=== PATIENT | male | born 1985 | race African-American/Black ===

== ENCOUNTER 2018-06-19 18:27 | Emergency (ER) | payer MEDICAID | END 2018-06-19 19:33 | disposition home or self-care (01) | LOC: FTE 18:27 | DX: Z76.0 Encounter for issue of repeat prescription (principal) | CPT/HCPCS: 99281; Z7502 ==

== ENCOUNTER 2018-07-17 01:27 | Emergency (ER) | payer MEDICAID | END 2018-07-17 02:05 | disposition home or self-care (01) | LOC: FTE 01:27 | DX: Z76.0 Encounter for issue of repeat prescription (principal) | CPT/HCPCS: 99281; Z7502 ==

== ENCOUNTER 2018-08-17 06:09 | Observation (INO) | payer SELFPAY, MEDICAID ==
[2018-08-17 06:39] LABS: ADD MAN DIFF? NO
[2018-08-17 06:42] LABS: WHITE BLOOD COUNT 6.5 10^3/ul (4.8-10.8)
[2018-08-17 06:42] LABS: ABNORMAL IP MESSAGE 1; BASOPHILS % 0.3 % (0.0-2.0); HEMATOCRIT 43.2 % (42.0-52.0); HEMOGLOBIN 14.6 g/dl (14.0-18.0); LYMPHOCYTES # 0.4 10^3/ul (0.8-2.9); LYMPHOCYTES % 6.4 % (15.0-51.0); MEAN CORPUSCULAR HEMOGLOBIN 28.1 pg (29.0-33.0); MEAN CORPUSCULAR HGB CONC 33.8 g/dl (32.0-37.0); MEAN CORPUSCULAR VOLUME 83.1 fl (82.0-101.0); MEAN PLATELET VOLUME 9.3 fl (7.4-10.4); MONOCYTE # 0.7 10^3/ul (0.3-0.9); MONOCYTES % 10.4 % (0.0-11.0); NEUTROPHIL # 5.4 10^3/ul (1.6-7.5); NEUTROPHILS % 82.7 % (39.0-77.0); PLATELET COUNT 202 10^3/UL (140-415); POSITIVE DIFF @See below; RED CELL DISTRIBUTION WIDTH 11.4 % (11.5-14.5)
[2018-08-17 06:55] LABS: ADD UMIC YES; UR ASCORBIC ACID NEGATIVE (NEGATIVE); UR BACTERIA FEW /HPF (NONE SEEN); UR BILIRUBIN (Dip) NEGATIVE (NEGATIVE); UR BLOOD (Dip) NEGATIVE (NEGATIVE); UR CLARITY SLIGHTLY CLOUDY (CLEAR); UR COLOR YELLOW (YELLOW); UR GLUCOSE (Dip) NEGATIVE (NEGATIVE); UR KETONES (Dip) NEGATIVE (NEGATIVE); UR LEUKOCYTE ESTERASE (Dip) NEGATIVE Leu/ul (NEGATIVE); UR MUCUS FEW /HPF (NONE SEEN); UR NITRITE (Dip) NEGATIVE (NEGATIVE); UR RBC 0 /HPF (0-5); UR SPECIFIC GRAVITY (Dip) 1.019 (1.003-1.030); UR TOTAL PROTEIN (Dip) 1+ mg/dl (NEGATIVE); UR UROBILINOGEN (Dip) NEGATIVE (NEGATIVE); UR WBC 1 /HPF (0-5)
[2018-08-17] MEDS: LEVETIRACETAM 1000 MG (PMX) 100 ML IVPB (06:57)
[2018-08-17] MEDS: SOD CHLORIDE 0.9% 1,000 ML IV ×3 (06:58→23:48)
[2018-08-17 07:00] LABS: INR 1.03; PROTIME 13.6 Sec (11.9-14.9); PT RATIO 1.1
[2018-08-17 07:03] LABS: ALANINE AMINOTRANSFERASE 28 IU/L (13-69); ALBUMIN 4.4 g/dl (3.3-4.9); ALBUMIN/GLOBULIN RATIO 1.46; ALKALINE PHOSPHATASE 104 IU/L (42-121); ANION GAP 11 (5-13); ASPARTATE AMINO TRANSFERASE 28 IU/L (15-46); BILIRUBIN,INDIRECT 0.9 mg/dl (0-1.1); BILIRUBIN,TOTAL 0.9 mg/dl (0.2-1.3); BLOOD UREA NITROGEN 10 mg/dl (7-20); CALCIUM 9.9 mg/dl (8.4-10.2); CARBON DIOXIDE 24 mmol/L (21-31); CHLORIDE 104 mmol/L (97-110); Estimated GFR > 60 mL/min (>60); GLUCOSE 104 mg/dl (70-220); SODIUM 139 mmol/L (135-144); TOTAL PROTEIN 7.4 g/dl (6.1-8.1)
[2018-08-17 07:04] LABS: ETHANOL < 10.0 mg/dl (0-0)
[2018-08-17 07:27] LABS: AMPHETAMINE/METHAMPHETAMINE Negative (NEGATIVE); BARBITURATES Negative (NEGATIVE); BENZODIAZEPINES Negative (NEGATIVE); COCAINE Negative (NEGATIVE); OPIATES Negative (NEGATIVE)
[2018-08-17 07:33] LABS: CANNABINOIDS Positive (NEGATIVE)
[2018-08-17] MEDS ORDERED: ACETAMINOPHEN 325 MG TAB PO ×2 (08:00→10:00)
[2018-08-17] MEDS ORDERED: ONDANSETRON 4 MG INJ IV ×2 (08:00→10:00)
[2018-08-17] MEDS ORDERED: NACL 0.9% 3 ML SYG IV (10:00)
[2018-08-17] MEDS: OXCARBAZEPINE 300 MG TAB PO ×2 (15:02→22:15)
[2018-08-17] MEDS: LORAZEPAM 4 MG/ML VIAL IV ×2 (15:07→18:03)
[2018-08-17] MEDS ORDERED: LEVETIRACETAM 1000 MG (PMX) 100 ML IVPB (21:00)
[2018-08-17] MEDS: LEVETIRACETAM 750 MG TAB PO (21:21)
[2018-08-18 06:19] LABS: ADD MAN DIFF? NO
[2018-08-18 06:28] LABS: BASOPHILS % 0.7 % (0.0-2.0); EOSINOPHILS # 0.1 10^3/ul (0.0-0.5); EOSINOPHILS % 1.5 % (0.0-7.0); HEMOGLOBIN 12.3 g/dl (14.0-18.0); LYMPHOCYTES # 0.9 10^3/ul (0.8-2.9); LYMPHOCYTES % 23.3 % (15.0-51.0); MEAN CORPUSCULAR HEMOGLOBIN 28.5 pg (29.0-33.0); MEAN CORPUSCULAR HGB CONC 34.2 g/dl (32.0-37.0); MEAN CORPUSCULAR VOLUME 83.5 fl (82.0-101.0); MEAN PLATELET VOLUME 9.1 fl (7.4-10.4); MONOCYTE # 0.8 10^3/ul (0.3-0.9); MONOCYTES % 18.6 % (0.0-11.0); NEUTROPHIL # 2.2 10^3/ul (1.6-7.5); NEUTROPHILS % 55.7 % (39.0-77.0); PLATELET COUNT 180 10^3/UL (140-415); RED BLOOD COUNT 4.31 10^6/ul (4.70-6.10); RED CELL DISTRIBUTION WIDTH 11.4 % (11.5-14.5)
[2018-08-18 07:01] LABS: ALANINE AMINOTRANSFERASE 29 IU/L (13-69); ALBUMIN 3.5 g/dl (3.3-4.9); ALBUMIN/GLOBULIN RATIO 1.45; ALKALINE PHOSPHATASE 74 IU/L (42-121); ANION GAP 9 (5-13); ASPARTATE AMINO TRANSFERASE 17 IU/L (15-46); BILIRUBIN,INDIRECT 0.8 mg/dl (0-1.1); BILIRUBIN,TOTAL 0.8 mg/dl (0.2-1.3); BLOOD UREA NITROGEN 10 mg/dl (7-20); CALCIUM 8.9 mg/dl (8.4-10.2); CARBON DIOXIDE 26 mmol/L (21-31); CHLORIDE 106 mmol/L (97-110); CREATININE 0.81 mg/dl (0.61-1.24); Estimated GFR > 60 mL/min (>60); GLUCOSE 110 mg/dl (70-220); PHOSPHORUS 3.4 mg/dl (2.5-4.9); SODIUM 141 mmol/L (135-144); TOTAL PROTEIN 5.9 g/dl (6.1-8.1)
[2018-08-18] MEDS: SOD CHLORIDE 0.9% 1,000 ML IV (08:42)
[2018-08-18] MEDS: OXCARBAZEPINE 300 MG TAB PO ×2 (08:42→20:42)
[2018-08-18] MEDS: LEVETIRACETAM 750 MG TAB PO ×2 (08:42→20:42)
[2018-08-18] MEDS: LORAZEPAM 4 MG/ML VIAL IV (18:44)
[2018-08-19] MEDS: SOD CHLORIDE 0.9% 1,000 ML IV ×2 (01:45→09:04)
[2018-08-19] MEDS: LEVETIRACETAM 750 MG TAB PO ×2 (09:04→20:14)
[2018-08-19] MEDS: OXCARBAZEPINE 300 MG TAB PO ×2 (09:04→20:14)
== END 2018-08-19 21:50 | disposition home or self-care (01) ==
LOC: E/R 06:09 → TEL 07:53
PROVIDERS: Internal Medicine
DX: G40.909 Epilepsy, unspecified, not intractable, without status epilepticus (principal); J06.9 Acute upper respiratory infection, unspecified
CPT/HCPCS: 36415; 70450; 70551; 71045; 80053; 80307; 81001; 82962; 83735; 84100; 84443; 85025; 85610; 87400; 96365; 99285-25; G0378

== ENCOUNTER 2018-12-31 04:27 | Inpatient (IN) | payer MEDICAID ==
[2018-12-31] MEDS: LEVETIRACETAM 1000 MG (PMX) 100 ML IVPB (04:48)
[2018-12-31] MEDS: LORAZEPAM 2 MG INJ IV ×4 (04:50→11:48)
[2018-12-31] MEDS ORDERED: BISACODYL (EC) 5 MG TAB PO (05:30)
[2018-12-31] MEDS ORDERED: DOCUSATE SODIUM 100 MG CAP PO (05:30)
[2018-12-31] MEDS: LEVETIRACETAM 500 MG (PMX) 100 ML IVPB (05:31)
[2018-12-31 05:33] LABS: ADD MAN DIFF? NO
[2018-12-31 05:40] LABS: WHITE BLOOD COUNT 5.1 10^3/ul (4.8-10.8)
[2018-12-31 05:40] LABS: BASOPHILS % 0.6 % (0.0-2.0); EOSINOPHILS % 0.4 % (0.0-7.0); HEMATOCRIT 42.7 % (42.0-52.0); LYMPHOCYTES # 1.3 10^3/ul (0.8-2.9); LYMPHOCYTES % 25.9 % (15.0-51.0); MEAN CORPUSCULAR HEMOGLOBIN 27.8 pg (29.0-33.0); MEAN CORPUSCULAR HGB CONC 32.8 g/dl (32.0-37.0); MEAN CORPUSCULAR VOLUME 84.7 fl (82.0-101.0); MONOCYTE # 0.4 10^3/ul (0.3-0.9); MONOCYTES % 8.6 % (0.0-11.0); NEUTROPHIL # 3.3 10^3/ul (1.6-7.5); NEUTROPHILS % 64.3 % (39.0-77.0); PLATELET COUNT 176 10^3/UL (140-415); RED BLOOD COUNT 5.04 10^6/ul (4.70-6.10); RED CELL DISTRIBUTION WIDTH 11.8 % (11.5-14.5)
[2018-12-31 05:53] LABS: HEMOGLOBIN A1C 4.6 % (0-5.9)
[2018-12-31] MEDS: SOD CHLORIDE 0.9% 1,000 ML IV ×2 (05:54→17:58)
[2018-12-31 05:57] LABS: ETHANOL < 10.0 mg/dl (0-0)
[2018-12-31] MEDS ORDERED: PANTOPRAZOLE 40 MG INJ IV (06:00)
[2018-12-31 06:13] LABS: ALANINE AMINOTRANSFERASE 25 IU/L (13-69); ALBUMIN 4.1 g/dl (3.3-4.9); ALBUMIN/GLOBULIN RATIO 1.64; ALKALINE PHOSPHATASE 75 IU/L (42-121); ANION GAP 8 (5-13); ASPARTATE AMINO TRANSFERASE 18 IU/L (15-46); BILIRUBIN,INDIRECT 0.9 mg/dl (0-1.1); BILIRUBIN,TOTAL 0.9 mg/dl (0.2-1.3); BLOOD UREA NITROGEN 9 mg/dl (7-20); CALCIUM 9.2 mg/dl (8.4-10.2); CARBON DIOXIDE 26 mmol/L (21-31); CHLORIDE 108 mmol/L (97-110); CREATININE 0.89 mg/dl (0.61-1.24); Estimated GFR > 60 mL/min (>60); GLUCOSE 84 mg/dl (70-220); POTASSIUM 4.1 mmol/L (3.5-5.1); SODIUM 142 mmol/L (135-144); TOTAL PROTEIN 6.6 g/dl (6.1-8.1)
[2018-12-31] MEDS: PANTOPRAZOLE (EC) 40 MG TAB PO (07:00)
[2018-12-31] MEDS: OXCARBAZEPINE 300 MG TAB PO ×2 (07:00→21:00)
[2018-12-31] MEDS ORDERED: OXCARBAZEPINE 300 MG TAB PO (09:00)
[2018-12-31 09:05] LABS: CARBAMAZEPINE (TEGRETOL) < 0.0 ug/ml (8.0-12.0)
[2018-12-31] MEDS: PHENYTOIN 1,000 MG in SOD CHLORIDE 0.9% 100 ML IV (11:33)
[2018-12-31 12:12] LABS: ADD UMIC NO; UR ASCORBIC ACID NEGATIVE (NEGATIVE); UR BILIRUBIN (Dip) NEGATIVE (NEGATIVE); UR BLOOD (Dip) NEGATIVE (NEGATIVE); UR CLARITY CLEAR (CLEAR); UR COLOR YELLOW (YELLOW); UR GLUCOSE (Dip) NEGATIVE (NEGATIVE); UR KETONES (Dip) 1+ mg/dL (NEGATIVE); UR LEUKOCYTE ESTERASE (Dip) NEGATIVE Leu/ul (NEGATIVE); UR NITRITE (Dip) NEGATIVE (NEGATIVE); UR SPECIFIC GRAVITY (Dip) 1.017 (1.003-1.030); UR TOTAL PROTEIN (Dip) NEGATIVE (NEGATIVE); UR UROBILINOGEN (Dip) NEGATIVE (NEGATIVE)
[2018-12-31 12:33] LABS: AMPHETAMINE/METHAMPHETAMINE Negative (NEGATIVE); BARBITURATES Negative (NEGATIVE); BENZODIAZEPINES Negative (NEGATIVE); CANNABINOIDS Negative (NEGATIVE); COCAINE Negative (NEGATIVE); OPIATES Negative (NEGATIVE)
[2018-12-31 13:59] LABS: PHENYTOIN (DILANTIN) 20.5 ug/ml (10.0-20.0)
[2018-12-31] MEDS: PHENYTOIN 100 MG INJ IV ×2 (14:15→21:06)
[2018-12-31] MEDS: LEVETIRACETAM 1500 MG (PMX) 100 ML IVPB ×2 (17:15→21:06)
[2019-01-01 05:27] LABS: ADD MAN DIFF? NO
[2019-01-01 05:41] LABS: WHITE BLOOD COUNT 6.8 10^3/ul (4.8-10.8)
[2019-01-01 05:41] LABS: BASOPHILS % 0.3 % (0.0-2.0); EOSINOPHILS # 0.1 10^3/ul (0.0-0.5); EOSINOPHILS % 0.7 % (0.0-7.0); HEMATOCRIT 44.5 % (42.0-52.0); HEMOGLOBIN 14.5 g/dl (14.0-18.0); LYMPHOCYTES # 1.7 10^3/ul (0.8-2.9); LYMPHOCYTES % 24.4 % (15.0-51.0); MEAN CORPUSCULAR HEMOGLOBIN 27.8 pg (29.0-33.0); MEAN CORPUSCULAR HGB CONC 32.6 g/dl (32.0-37.0); MEAN CORPUSCULAR VOLUME 85.4 fl (82.0-101.0); MEAN PLATELET VOLUME 9.4 fl (7.4-10.4); MONOCYTE # 0.6 10^3/ul (0.3-0.9); MONOCYTES % 8.1 % (0.0-11.0); NEUTROPHIL # 4.5 10^3/ul (1.6-7.5); NEUTROPHILS % 66.4 % (39.0-77.0); PLATELET COUNT 183 10^3/UL (140-415); RED BLOOD COUNT 5.21 10^6/ul (4.70-6.10); RED CELL DISTRIBUTION WIDTH 11.7 % (11.5-14.5)
[2019-01-01 05:53] LABS: ALANINE AMINOTRANSFERASE 17 IU/L (13-69); ALBUMIN 4.5 g/dl (3.3-4.9); ALKALINE PHOSPHATASE 110 IU/L (42-121); ANION GAP 12 (5-13); ASPARTATE AMINO TRANSFERASE 19 IU/L (15-46); BILIRUBIN,INDIRECT 0.9 mg/dl (0-1.1); BILIRUBIN,TOTAL 0.9 mg/dl (0.2-1.3); BLOOD UREA NITROGEN 4 mg/dl (7-20); CALCIUM 9.1 mg/dl (8.4-10.2); CARBON DIOXIDE 24 mmol/L (21-31); CHLORIDE 107 mmol/L (97-110); CREATININE 0.81 mg/dl (0.61-1.24); Estimated GFR > 60 mL/min (>60); GLUCOSE 101 mg/dl (70-220); POTASSIUM 3.8 mmol/L (3.5-5.1); SODIUM 143 mmol/L (135-144); TOTAL PROTEIN 7.7 g/dl (6.1-8.1)
[2019-01-01] MEDS: PANTOPRAZOLE (EC) 40 MG TAB PO (06:00)
[2019-01-01] MEDS: PHENYTOIN 100 MG INJ IV ×3 (06:19→21:40)
[2019-01-01] MEDS: LORAZEPAM 2 MG INJ IV ×3 (09:17→19:51)
[2019-01-01] MEDS: LEVETIRACETAM 1500 MG (PMX) 100 ML IVPB ×2 (09:46→20:32)
[2019-01-01] MEDS: SOD CHLORIDE 0.9% 1,000 ML IV ×2 (09:46→21:49)
[2019-01-01] MEDS: OXCARBAZEPINE 300 MG TAB PO ×2 (09:46→20:33)
[2019-01-01 10:10] LABS: PHENYTOIN (DILANTIN) 19.7 ug/ml (10.0-20.0)
[2019-01-02] MEDS: LORAZEPAM 2 MG INJ IV (02:30)
[2019-01-02] MEDS: PANTOPRAZOLE (EC) 40 MG TAB PO (05:21)
[2019-01-02] MEDS: PHENYTOIN 100 MG INJ IV ×3 (05:24→22:09)
[2019-01-02 05:58] LABS: ADD MAN DIFF? NO
[2019-01-02 06:06] LABS: BASOPHILS % 0.4 % (0.0-2.0); EOSINOPHILS # 0.1 10^3/ul (0.0-0.5); EOSINOPHILS % 0.9 % (0.0-7.0); HEMATOCRIT 41.3 % (42.0-52.0); HEMOGLOBIN 13.6 g/dl (14.0-18.0); LYMPHOCYTES # 1.3 10^3/ul (0.8-2.9); LYMPHOCYTES % 23.7 % (15.0-51.0); MEAN CORPUSCULAR HEMOGLOBIN 27.9 pg (29.0-33.0); MEAN CORPUSCULAR HGB CONC 32.9 g/dl (32.0-37.0); MEAN CORPUSCULAR VOLUME 84.6 fl (82.0-101.0); MEAN PLATELET VOLUME 9.4 fl (7.4-10.4); MONOCYTE # 0.5 10^3/ul (0.3-0.9); MONOCYTES % 10.2 % (0.0-11.0); NEUTROPHIL # 3.4 10^3/ul (1.6-7.5); NEUTROPHILS % 64.4 % (39.0-77.0); PLATELET COUNT 174 10^3/UL (140-415); RED BLOOD COUNT 4.88 10^6/ul (4.70-6.10); RED CELL DISTRIBUTION WIDTH 11.6 % (11.5-14.5)
[2019-01-02 06:06] LABS: WHITE BLOOD COUNT 5.3 10^3/ul (4.8-10.8)
[2019-01-02 06:27] LABS: PHENYTOIN (DILANTIN) 19.5 ug/ml (10.0-20.0)
[2019-01-02 06:43] LABS: ALANINE AMINOTRANSFERASE 20 IU/L (13-69); ALBUMIN 3.6 g/dl (3.3-4.9); ALKALINE PHOSPHATASE 102 IU/L (42-121); ANION GAP 9 (5-13); ASPARTATE AMINO TRANSFERASE 12 IU/L (15-46); BILIRUBIN,INDIRECT 0.8 mg/dl (0-1.1); BILIRUBIN,TOTAL 0.8 mg/dl (0.2-1.3); BLOOD UREA NITROGEN 7 mg/dl (7-20); CALCIUM 8.8 mg/dl (8.4-10.2); CARBON DIOXIDE 22 mmol/L (21-31); CHLORIDE 109 mmol/L (97-110); CREATININE 0.73 mg/dl (0.61-1.24); Estimated GFR > 60 mL/min (>60); GLUCOSE 83 mg/dl (70-220); POTASSIUM 3.8 mmol/L (3.5-5.1); SODIUM 140 mmol/L (135-144); TOTAL PROTEIN 6.6 g/dl (6.1-8.1)
[2019-01-02] MEDS: OXCARBAZEPINE 300 MG TAB PO ×2 (08:44→21:09)
[2019-01-02] MEDS: LEVETIRACETAM 1500 MG (PMX) 100 ML IVPB ×2 (08:44→21:10)
[2019-01-02] MEDS: DEXTROSE 5%-0.45% NACL 1,000 ML IV (15:09)
[2019-01-03] MEDS: DEXTROSE 5%-0.45% NACL 1,000 ML IV (04:28)
[2019-01-03 05:24] LABS: ADD MAN DIFF? NO
[2019-01-03] MEDS: PHENYTOIN 100 MG INJ IV ×3 (05:26→20:38)
[2019-01-03] MEDS: PANTOPRAZOLE (EC) 40 MG TAB PO (05:26)
[2019-01-03 05:28] LABS: BASOPHILS % 0.5 % (0.0-2.0); EOSINOPHILS # 0.1 10^3/ul (0.0-0.5); EOSINOPHILS % 1.6 % (0.0-7.0); HEMATOCRIT 40.7 % (42.0-52.0); HEMOGLOBIN 13.6 g/dl (14.0-18.0); LYMPHOCYTES # 1.2 10^3/ul (0.8-2.9); LYMPHOCYTES % 26.6 % (15.0-51.0); MEAN CORPUSCULAR HEMOGLOBIN 27.6 pg (29.0-33.0); MEAN CORPUSCULAR HGB CONC 33.4 g/dl (32.0-37.0); MEAN CORPUSCULAR VOLUME 82.7 fl (82.0-101.0); MEAN PLATELET VOLUME 9.3 fl (7.4-10.4); MONOCYTE # 0.4 10^3/ul (0.3-0.9); MONOCYTES % 9.9 % (0.0-11.0); NEUTROPHIL # 2.7 10^3/ul (1.6-7.5); NEUTROPHILS % 61.2 % (39.0-77.0); PLATELET COUNT 195 10^3/UL (140-415); RED BLOOD COUNT 4.92 10^6/ul (4.70-6.10); RED CELL DISTRIBUTION WIDTH 11.3 % (11.5-14.5)
[2019-01-03 05:28] LABS: WHITE BLOOD COUNT 4.4 10^3/ul (4.8-10.8)
[2019-01-03 06:08] LABS: PHENYTOIN (DILANTIN) 19.7 ug/ml (10.0-20.0)
[2019-01-03 06:08] LABS: ALANINE AMINOTRANSFERASE 16 IU/L (13-69); ALBUMIN 3.6 g/dl (3.3-4.9); ALBUMIN/GLOBULIN RATIO 1.33; ALKALINE PHOSPHATASE 93 IU/L (42-121); ANION GAP 7 (5-13); ASPARTATE AMINO TRANSFERASE 13 IU/L (15-46); BILIRUBIN,INDIRECT 0.7 mg/dl (0-1.1); BILIRUBIN,TOTAL 0.7 mg/dl (0.2-1.3); BLOOD UREA NITROGEN 6 mg/dl (7-20); CALCIUM 8.7 mg/dl (8.4-10.2); CARBON DIOXIDE 27 mmol/L (21-31); CHLORIDE 105 mmol/L (97-110); CREATININE 0.77 mg/dl (0.61-1.24); Estimated GFR > 60 mL/min (>60); GLUCOSE 113 mg/dl (70-220); POTASSIUM 3.5 mmol/L (3.5-5.1); SODIUM 139 mmol/L (135-144); TOTAL PROTEIN 6.3 g/dl (6.1-8.1)
[2019-01-03] MEDS: LEVETIRACETAM 1500 MG (PMX) 100 ML IVPB ×2 (08:46→20:38)
[2019-01-03] MEDS: OXCARBAZEPINE 300 MG TAB PO ×2 (08:46→20:38)
[2019-01-03 13:27] LABS: PROLACTIN 16.8 ng/mL (2.0-18.0)
[2019-01-03 16:37] LABS: LEVETIRACETAM 63.7 mcg/mL
[2019-01-04] MEDS: PHENYTOIN 100 MG INJ IV ×3 (05:26→20:20)
[2019-01-04] MEDS: PANTOPRAZOLE (EC) 40 MG TAB PO (05:26)
[2019-01-04 06:11] LABS: ADD MAN DIFF? NO
[2019-01-04 06:16] LABS: WHITE BLOOD COUNT 4.4 10^3/ul (4.8-10.8)
[2019-01-04 06:16] LABS: BASOPHILS % 0.7 % (0.0-2.0); EOSINOPHILS # 0.1 10^3/ul (0.0-0.5); EOSINOPHILS % 2.5 % (0.0-7.0); HEMATOCRIT 40.8 % (42.0-52.0); HEMOGLOBIN 13.5 g/dl (14.0-18.0); LYMPHOCYTES # 1.2 10^3/ul (0.8-2.9); LYMPHOCYTES % 28.2 % (15.0-51.0); MEAN CORPUSCULAR HEMOGLOBIN 27.7 pg (29.0-33.0); MEAN CORPUSCULAR HGB CONC 33.1 g/dl (32.0-37.0); MEAN CORPUSCULAR VOLUME 83.6 fl (82.0-101.0); MEAN PLATELET VOLUME 9.3 fl (7.4-10.4); MONOCYTE # 0.4 10^3/ul (0.3-0.9); NEUTROPHIL # 2.6 10^3/ul (1.6-7.5); NEUTROPHILS % 58.6 % (39.0-77.0); PLATELET COUNT 202 10^3/UL (140-415); RED BLOOD COUNT 4.88 10^6/ul (4.70-6.10); RED CELL DISTRIBUTION WIDTH 11.2 % (11.5-14.5)
[2019-01-04 07:02] LABS: PHENYTOIN (DILANTIN) 19.8 ug/ml (10.0-20.0)
[2019-01-04 07:02] LABS: ALANINE AMINOTRANSFERASE 20 IU/L (13-69); ALBUMIN 3.9 g/dl (3.3-4.9); ALBUMIN/GLOBULIN RATIO 1.39; ALKALINE PHOSPHATASE 98 IU/L (42-121); ANION GAP 8 (5-13); ASPARTATE AMINO TRANSFERASE 18 IU/L (15-46); BILIRUBIN,INDIRECT 0.5 mg/dl (0-1.1); BILIRUBIN,TOTAL 0.5 mg/dl (0.2-1.3); BLOOD UREA NITROGEN 7 mg/dl (7-20); CALCIUM 9.4 mg/dl (8.4-10.2); CARBON DIOXIDE 27 mmol/L (21-31); CHLORIDE 104 mmol/L (97-110); CREATININE 0.77 mg/dl (0.61-1.24); Estimated GFR > 60 mL/min (>60); GLUCOSE 106 mg/dl (70-220); POTASSIUM 3.4 mmol/L (3.5-5.1); SODIUM 139 mmol/L (135-144); TOTAL PROTEIN 6.7 g/dl (6.1-8.1)
[2019-01-04] MEDS: OXCARBAZEPINE 300 MG TAB PO ×2 (08:51→20:19)
[2019-01-04] MEDS: LEVETIRACETAM 1500 MG (PMX) 100 ML IVPB ×2 (08:52→20:20)
[2019-01-05 06:08] LABS: ADD MAN DIFF? NO
[2019-01-05 06:10] LABS: EOSINOPHILS # 0.1 10^3/ul (0.0-0.5); EOSINOPHILS % 2.5 % (0.0-7.0); HEMOGLOBIN 14.3 g/dl (14.0-18.0); LYMPHOCYTES # 1.4 10^3/ul (0.8-2.9); LYMPHOCYTES % 34.8 % (15.0-51.0); MEAN CORPUSCULAR HEMOGLOBIN 27.5 pg (29.0-33.0); MEAN CORPUSCULAR HGB CONC 33.3 g/dl (32.0-37.0); MEAN CORPUSCULAR VOLUME 82.7 fl (82.0-101.0); MEAN PLATELET VOLUME 9.3 fl (7.4-10.4); MONOCYTE # 0.5 10^3/ul (0.3-0.9); MONOCYTES % 12.4 % (0.0-11.0); NEUTROPHILS % 48.8 % (39.0-77.0); PLATELET COUNT 215 10^3/UL (140-415); RED CELL DISTRIBUTION WIDTH 11.4 % (11.5-14.5)
[2019-01-05] MEDS: PANTOPRAZOLE (EC) 40 MG TAB PO (06:12)
[2019-01-05] MEDS: PHENYTOIN 100 MG INJ IV ×2 (06:12→20:57)
[2019-01-05 06:31] LABS: ANION GAP 8 (5-13); BLOOD UREA NITROGEN 8 mg/dl (7-20); CALCIUM 9.3 mg/dl (8.4-10.2); CARBON DIOXIDE 29 mmol/L (21-31); CHLORIDE 102 mmol/L (97-110); CREATININE 0.71 mg/dl (0.61-1.24); Estimated GFR > 60 mL/min (>60); GLUCOSE 101 mg/dl (70-220); MAGNESIUM 1.9 mg/dl (1.7-2.5); PHOSPHORUS 4.2 mg/dl (2.5-4.9); POTASSIUM 3.7 mmol/L (3.5-5.1); SODIUM 139 mmol/L (135-144)
[2019-01-05 06:39] LABS: PHENYTOIN (DILANTIN) 23.7 ug/ml (10.0-20.0)
[2019-01-05] MEDS: OXCARBAZEPINE 300 MG TAB PO ×2 (08:28→20:58)
[2019-01-05] MEDS: LEVETIRACETAM 1500 MG (PMX) 100 ML IVPB ×2 (08:29→20:58)
[2019-01-05 16:11] LABS: PHENYTOIN (DILANTIN) 13.9 ug/ml (10.0-20.0)
[2019-01-06 05:37] LABS: ADD MAN DIFF? NO
[2019-01-06 05:46] LABS: BASOPHIL # 0.1 10^3/ul (0.0-0.1); BASOPHILS % 1.1 % (0.0-2.0); EOSINOPHILS # 0.1 10^3/ul (0.0-0.5); EOSINOPHILS % 2.1 % (0.0-7.0); HEMATOCRIT 42.5 % (42.0-52.0); HEMOGLOBIN 14.1 g/dl (14.0-18.0); LYMPHOCYTES # 1.7 10^3/ul (0.8-2.9); LYMPHOCYTES % 37.6 % (15.0-51.0); MEAN CORPUSCULAR HEMOGLOBIN 27.8 pg (29.0-33.0); MEAN CORPUSCULAR HGB CONC 33.2 g/dl (32.0-37.0); MEAN CORPUSCULAR VOLUME 83.8 fl (82.0-101.0); MEAN PLATELET VOLUME 9.1 fl (7.4-10.4); MONOCYTE # 0.5 10^3/ul (0.3-0.9); MONOCYTES % 10.9 % (0.0-11.0); NEUTROPHIL # 2.1 10^3/ul (1.6-7.5); NEUTROPHILS % 48.1 % (39.0-77.0); PLATELET COUNT 227 10^3/UL (140-415); RED BLOOD COUNT 5.07 10^6/ul (4.70-6.10); RED CELL DISTRIBUTION WIDTH 11.2 % (11.5-14.5)
[2019-01-06 05:46] LABS: WHITE BLOOD COUNT 4.4 10^3/ul (4.8-10.8)
[2019-01-06] MEDS: PANTOPRAZOLE (EC) 40 MG TAB PO (05:52)
[2019-01-06 06:09] LABS: PHENYTOIN (DILANTIN) 19.8 ug/ml (10.0-20.0)
[2019-01-06 06:09] LABS: ANION GAP 7 (5-13); BLOOD UREA NITROGEN 9 mg/dl (7-20); CALCIUM 9.4 mg/dl (8.4-10.2); CARBON DIOXIDE 29 mmol/L (21-31); CHLORIDE 102 mmol/L (97-110); CREATININE 0.78 mg/dl (0.61-1.24); Estimated GFR > 60 mL/min (>60); GLUCOSE 94 mg/dl (70-220); MAGNESIUM 1.9 mg/dl (1.7-2.5); POTASSIUM 4.4 mmol/L (3.5-5.1); SODIUM 138 mmol/L (135-144)
[2019-01-06] MEDS: LEVETIRACETAM 1500 MG (PMX) 100 ML IVPB ×2 (08:55→20:34)
[2019-01-06] MEDS: PHENYTOIN 100 MG INJ IV ×2 (08:55→20:30)
[2019-01-06] MEDS: OXCARBAZEPINE 300 MG TAB PO ×2 (08:55→20:30)
[2019-01-06 16:05] LABS: PHENYTOIN (DILANTIN) 19.7 ug/ml (10.0-20.0)
[2019-01-06] MEDS: LORAZEPAM 2 MG INJ IV (23:46)
[2019-01-07 05:33] LABS: ADD MAN DIFF? NO
[2019-01-07 05:42] LABS: BASOPHILS % 0.9 % (0.0-2.0); EOSINOPHILS # 0.1 10^3/ul (0.0-0.5); EOSINOPHILS % 2.6 % (0.0-7.0); HEMATOCRIT 45.5 % (42.0-52.0); LYMPHOCYTES # 1.9 10^3/ul (0.8-2.9); LYMPHOCYTES % 42.2 % (15.0-51.0); MEAN CORPUSCULAR HEMOGLOBIN 27.7 pg (29.0-33.0); MEAN CORPUSCULAR VOLUME 83.9 fl (82.0-101.0); MONOCYTE # 0.6 10^3/ul (0.3-0.9); MONOCYTES % 12.1 % (0.0-11.0); NEUTROPHIL # 1.9 10^3/ul (1.6-7.5); PLATELET COUNT 217 10^3/UL (140-415); RED BLOOD COUNT 5.42 10^6/ul (4.70-6.10); RED CELL DISTRIBUTION WIDTH 11.4 % (11.5-14.5)
[2019-01-07 05:42] LABS: WHITE BLOOD COUNT 4.6 10^3/ul (4.8-10.8)
[2019-01-07] MEDS: PANTOPRAZOLE (EC) 40 MG TAB PO (06:19)
[2019-01-07 06:41] LABS: ANION GAP 9 (5-13); BLOOD UREA NITROGEN 18 mg/dl (7-20); CALCIUM 9.2 mg/dl (8.4-10.2); CARBON DIOXIDE 26 mmol/L (21-31); CHLORIDE 103 mmol/L (97-110); CREATININE 0.85 mg/dl (0.61-1.24); Estimated GFR > 60 mL/min (>60); GLUCOSE 94 mg/dl (70-220); MAGNESIUM 2.1 mg/dl (1.7-2.5); PHOSPHORUS 4.7 mg/dl (2.5-4.9); POTASSIUM 4.5 mmol/L (3.5-5.1); SODIUM 138 mmol/L (135-144)
[2019-01-07] MEDS: PHENYTOIN 100 MG INJ IV (07:54)
[2019-01-07] MEDS: LEVETIRACETAM 1500 MG (PMX) 100 ML IVPB ×2 (07:54→21:44)
[2019-01-07] MEDS: OXCARBAZEPINE 300 MG TAB PO ×2 (07:54→20:10)
[2019-01-07] MEDS: LORAZEPAM 2 MG INJ IV ×2 (11:37→16:26)
[2019-01-07] MEDS: VALPROATE INJ 1,000 MG in SOD CHLORIDE 0.9% 100 ML IVPB (13:54)
[2019-01-07 16:57] LABS: VALPROATE 78 ug/ml (50-100)
[2019-01-07 17:54] LABS: ADD UMIC NO; UR ASCORBIC ACID NEGATIVE (NEGATIVE); UR BILIRUBIN (Dip) NEGATIVE (NEGATIVE); UR BLOOD (Dip) NEGATIVE (NEGATIVE); UR CLARITY CLEAR (CLEAR); UR COLOR YELLOW (YELLOW); UR GLUCOSE (Dip) NEGATIVE (NEGATIVE); UR KETONES (Dip) NEGATIVE (NEGATIVE); UR LEUKOCYTE ESTERASE (Dip) NEGATIVE Leu/ul (NEGATIVE); UR NITRITE (Dip) NEGATIVE (NEGATIVE); UR TOTAL PROTEIN (Dip) NEGATIVE (NEGATIVE); UR UROBILINOGEN (Dip) NEGATIVE (NEGATIVE)
[2019-01-07] MEDS: VALPROATE INJ 500 MG in SOD CHLORIDE 0.9% 50 ML IVPB (20:10)
[2019-01-08] MEDS: PANTOPRAZOLE (EC) 40 MG TAB PO (05:57)
[2019-01-08 06:06] LABS: VALPROATE 36 ug/ml (50-100)
[2019-01-08] MEDS: OXCARBAZEPINE 300 MG TAB PO ×2 (07:56→22:14)
[2019-01-08] MEDS: LEVETIRACETAM 1500 MG (PMX) 100 ML IVPB ×2 (07:57→20:17)
[2019-01-08] MEDS: LORAZEPAM 2 MG INJ IV ×6 (07:57→22:26)
[2019-01-08] MEDS: VALPROATE INJ 500 MG in SOD CHLORIDE 0.9% 50 ML IVPB ×5 (08:30→20:11)
[2019-01-08 15:23] LABS: VALPROATE 45 ug/ml (50-100)
[2019-01-08 19:17] LABS: VALPROATE 78 ug/ml (50-100)
[2019-01-09] MEDS: LORAZEPAM 2 MG INJ IV ×2 (02:38→05:51)
[2019-01-09] MEDS: PANTOPRAZOLE (EC) 40 MG TAB PO (05:54)
[2019-01-09 06:57] LABS: VALPROATE 58 ug/ml (50-100)
[2019-01-09] MEDS: LEVETIRACETAM 1500 MG (PMX) 100 ML IVPB ×2 (08:30→20:32)
[2019-01-09] MEDS: OXCARBAZEPINE 300 MG TAB PO ×2 (08:30→21:00)
[2019-01-09] MEDS: VALPROATE INJ 500 MG in SOD CHLORIDE 0.9% 50 ML IVPB (10:52)
[2019-01-09] MEDS: PHENOBARBITAL 65 MG INJ IV ×4 (12:56→20:32)
[2019-01-09] MEDS: DEXTROSE 5%-0.45% NACL 1,000 ML IV (20:32)
[2019-01-10 00:53] LABS: Allen Test ACCEPTAB; Arterial Base Excess -0.1 mmol/L (-3.0-3); Arterial Blood Gas Oxygen Sat 97.1 mmHG (95.0-98.0); Arterial COHb 0.5 % (0.0-3.0); Arterial Fraction of Oxyhgb 96.3 % (93.0-99.0); Arterial HCO3 25.3 mmol/L (22.0-26.0); Arterial MetHb 0.3 % (0.0-1.5); Arterial pCO2 44.1 mmhg (35-45); MODE ROOMK AIR; Site Right Radial
[2019-01-10 05:37] LABS: ADD MAN DIFF? NO
[2019-01-10] MEDS: PANTOPRAZOLE (EC) 40 MG TAB PO (05:37)
[2019-01-10 06:21] LABS: PHOSPHORUS 4.1 mg/dl (2.5-4.9)
[2019-01-10 06:24] LABS: ANION GAP 7 (5-13); BLOOD UREA NITROGEN 14 mg/dl (7-20); CALCIUM 9.1 mg/dl (8.4-10.2); CARBON DIOXIDE 27 mmol/L (21-31); CHLORIDE 104 mmol/L (97-110); CREATININE 0.71 mg/dl (0.61-1.24); Estimated GFR > 60 mL/min (>60); GLUCOSE 100 mg/dl (70-220); POTASSIUM 5.2 mmol/L (3.5-5.1); SODIUM 138 mmol/L (135-144)
[2019-01-10 07:21] LABS: WHITE BLOOD COUNT 5.6 10^3/ul (4.8-10.8)
[2019-01-10 07:21] LABS: BASOPHIL # 0.1 10^3/ul (0.0-0.1); BASOPHILS % 0.9 % (0.0-2.0); EOSINOPHILS # 0.1 10^3/ul (0.0-0.5); EOSINOPHILS % 0.9 % (0.0-7.0); HEMATOCRIT 44.7 % (42.0-52.0); HEMOGLOBIN 14.9 g/dl (14.0-18.0); LYMPHOCYTES # 1.4 10^3/ul (0.8-2.9); LYMPHOCYTES % 25.8 % (15.0-51.0); MEAN CORPUSCULAR HEMOGLOBIN 27.9 pg (29.0-33.0); MEAN CORPUSCULAR HGB CONC 33.3 g/dl (32.0-37.0); MEAN CORPUSCULAR VOLUME 83.6 fl (82.0-101.0); MEAN PLATELET VOLUME 8.8 fl (7.4-10.4); MONOCYTE # 0.7 10^3/ul (0.3-0.9); MONOCYTES % 13.3 % (0.0-11.0); NEUTROPHIL # 3.3 10^3/ul (1.6-7.5); NEUTROPHILS % 58.7 % (39.0-77.0); PLATELET COUNT 231 10^3/UL (140-415); RED BLOOD COUNT 5.35 10^6/ul (4.70-6.10); RED CELL DISTRIBUTION WIDTH 11.3 % (11.5-14.5)
[2019-01-10] MEDS: PHENOBARBITAL 65 MG INJ IV (08:33)
[2019-01-10] MEDS: LEVETIRACETAM 1500 MG (PMX) 100 ML IVPB ×2 (08:33→21:47)
[2019-01-10] MEDS: OXCARBAZEPINE 300 MG TAB PO ×2 (08:34→21:00)
[2019-01-10] MEDS: DEXTROSE 5%-0.45% NACL 1,000 ML IV (09:30)
[2019-01-11] MEDS: PHENOBARBITAL 65 MG INJ IV ×3 (00:21→21:01)
[2019-01-11] MEDS: DEXTROSE 5%-0.45% NACL 1,000 ML IV ×2 (00:35→15:21)
[2019-01-11] MEDS: PANTOPRAZOLE (EC) 40 MG TAB PO (05:11)
[2019-01-11] MEDS: LORAZEPAM 2 MG INJ IV (05:11)
[2019-01-11 05:30] LABS: ADD MAN DIFF? NO
[2019-01-11 05:35] LABS: BASOPHILS % 0.5 % (0.0-2.0); EOSINOPHILS % 0.4 % (0.0-7.0); HEMATOCRIT 43.2 % (42.0-52.0); HEMOGLOBIN 14.3 g/dl (14.0-18.0); LYMPHOCYTES # 1.3 10^3/ul (0.8-2.9); LYMPHOCYTES % 23.1 % (15.0-51.0); MEAN CORPUSCULAR HEMOGLOBIN 27.7 pg (29.0-33.0); MEAN CORPUSCULAR HGB CONC 33.1 g/dl (32.0-37.0); MEAN CORPUSCULAR VOLUME 83.7 fl (82.0-101.0); MEAN PLATELET VOLUME 9.1 fl (7.4-10.4); MONOCYTE # 0.6 10^3/ul (0.3-0.9); MONOCYTES % 11.4 % (0.0-11.0); NEUTROPHIL # 3.6 10^3/ul (1.6-7.5); NEUTROPHILS % 64.2 % (39.0-77.0); PLATELET COUNT 231 10^3/UL (140-415); RED BLOOD COUNT 5.16 10^6/ul (4.70-6.10); RED CELL DISTRIBUTION WIDTH 11.4 % (11.5-14.5)
[2019-01-11 05:35] LABS: WHITE BLOOD COUNT 5.5 10^3/ul (4.8-10.8)
[2019-01-11 06:05] LABS: PHOSPHORUS 3.9 mg/dl (2.5-4.9)
[2019-01-11 06:10] LABS: ANION GAP 4 (5-13); BLOOD UREA NITROGEN 9 mg/dl (7-20); CARBON DIOXIDE 29 mmol/L (21-31); CHLORIDE 106 mmol/L (97-110); CREATININE 0.71 mg/dl (0.61-1.24); Estimated GFR > 60 mL/min (>60); GLUCOSE 107 mg/dl (70-220); POTASSIUM 4.5 mmol/L (3.5-5.1); SODIUM 139 mmol/L (135-144)
[2019-01-11] MEDS: OXCARBAZEPINE 300 MG TAB PO ×2 (09:06→21:01)
[2019-01-11] MEDS: LEVETIRACETAM 1500 MG (PMX) 100 ML IVPB ×2 (09:06→21:01)
[2019-01-12] MEDS: LORAZEPAM 2 MG INJ IV ×2 (02:51→03:37)
[2019-01-12 04:12] LABS: PHENOBARBITAL 26.1 mg/L (15.0-40.0)
[2019-01-12] MEDS: DEXTROSE 5%-0.45% NACL 1,000 ML IV (04:45)
[2019-01-12 05:19] LABS: ADD MAN DIFF? NO
[2019-01-12 05:23] LABS: WHITE BLOOD COUNT 10.4 10^3/ul (4.8-10.8)
[2019-01-12 05:23] LABS: BASOPHILS % 0.3 % (0.0-2.0); EOSINOPHILS % 0.1 % (0.0-7.0); HEMOGLOBIN 13.4 g/dl (14.0-18.0); LYMPHOCYTES # 0.7 10^3/ul (0.8-2.9); LYMPHOCYTES % 6.9 % (15.0-51.0); MEAN CORPUSCULAR HEMOGLOBIN 27.3 pg (29.0-33.0); MEAN CORPUSCULAR HGB CONC 32.7 g/dl (32.0-37.0); MEAN CORPUSCULAR VOLUME 83.7 fl (82.0-101.0); MEAN PLATELET VOLUME 8.9 fl (7.4-10.4); MONOCYTE # 0.8 10^3/ul (0.3-0.9); MONOCYTES % 7.8 % (0.0-11.0); NEUTROPHIL # 8.8 10^3/ul (1.6-7.5); NEUTROPHILS % 84.5 % (39.0-77.0); PLATELET COUNT 244 10^3/UL (140-415); RED CELL DISTRIBUTION WIDTH 11.4 % (11.5-14.5)
[2019-01-12] MEDS: PANTOPRAZOLE (EC) 40 MG TAB PO (05:33)
[2019-01-12 05:51] LABS: ANION GAP 7 (5-13); BLOOD UREA NITROGEN 7 mg/dl (7-20); CALCIUM 9.1 mg/dl (8.4-10.2); CARBON DIOXIDE 29 mmol/L (21-31); CHLORIDE 103 mmol/L (97-110); CREATININE 0.69 mg/dl (0.61-1.24); Estimated GFR > 60 mL/min (>60); GLUCOSE 127 mg/dl (70-220); POTASSIUM 3.9 mmol/L (3.5-5.1); SODIUM 139 mmol/L (135-144)
[2019-01-12 06:08] LABS: PHOSPHORUS 3.2 mg/dl (2.5-4.9)
[2019-01-12 06:08] LABS: MAGNESIUM 1.8 mg/dl (1.7-2.5)
[2019-01-12] MEDS ORDERED: PHENYTOIN 1,000 MG in SOD CHLORIDE 0.9% 100 ML IV (07:00)
[2019-01-12 07:55] LABS: PHENYTOIN (DILANTIN) < 3.0 ug/ml (10.0-20.0)
[2019-01-12] MEDS: PHENYTOIN 1,000 MG in SOD CHLORIDE 0.9% 100 ML IV (08:27)
[2019-01-12 10:44] LABS: PHENYTOIN (DILANTIN) 16.9 ug/ml (10.0-20.0)
[2019-01-12] MEDS: PHENOBARBITAL 65 MG INJ IV ×2 (11:52→21:24)
[2019-01-12 13:51] LABS: ADD UMIC YES; UR ASCORBIC ACID NEGATIVE (NEGATIVE); UR BACTERIA FEW /HPF (NONE SEEN); UR BILIRUBIN (Dip) NEGATIVE (NEGATIVE); UR BLOOD (Dip) 2+ mg/dL (NEGATIVE); UR CLARITY CLOUDY (CLEAR); UR COLOR YELLOW (YELLOW); UR GLUCOSE (Dip) 3+ mg/dL (NEGATIVE); UR KETONES (Dip) NEGATIVE (NEGATIVE); UR LEUKOCYTE ESTERASE (Dip) 2+ Leu/ul (NEGATIVE); UR NITRITE (Dip) NEGATIVE (NEGATIVE); UR RBC 114 /HPF (0-5); UR TOTAL PROTEIN (Dip) 1+ mg/dl (NEGATIVE); UR UROBILINOGEN (Dip) 2+ mg/dL (NEGATIVE); UR WBC 124 /HPF (0-5)
[2019-01-12] MEDS: PHENYTOIN 100 MG INJ IV ×2 (14:30→21:24)
[2019-01-12] MEDS: CEFTRIAXONE 1 GM/50 ML (PMX) 50 ML IVPB (15:10)
[2019-01-12] MEDS: ACETAMINOPHEN 650MG/20.3ML CUP PO ×2 (15:10→16:56)
[2019-01-13 03:46] LABS: PHENOBARBITAL 26.3 mg/L (15.0-40.0)
[2019-01-13] MEDS: ACETAMINOPHEN 650MG/20.3ML CUP PO ×2 (04:26→04:27)
[2019-01-13] MEDS: PHENYTOIN 100 MG INJ IV ×3 (05:29→21:14)
[2019-01-13] MEDS: PANTOPRAZOLE (EC) 40 MG TAB PO (05:29)
[2019-01-13 05:31] LABS: BASOPHIL # 0.1 10^3/ul (0.0-0.1); BASOPHILS % 0.3 % (0.0-2.0); HEMATOCRIT 42.5 % (42.0-52.0); LYMPHOCYTES # 0.8 10^3/ul (0.8-2.9); LYMPHOCYTES % 5.1 % (15.0-51.0); MEAN CORPUSCULAR HEMOGLOBIN 27.7 pg (29.0-33.0); MEAN CORPUSCULAR HGB CONC 32.9 g/dl (32.0-37.0); MONOCYTE # 0.8 10^3/ul (0.3-0.9); NEUTROPHIL # 13.2 10^3/ul (1.6-7.5); NEUTROPHILS % 88.9 % (39.0-77.0); PLATELET COUNT 245 10^3/UL (140-415); RED BLOOD COUNT 5.06 10^6/ul (4.70-6.10); RED CELL DISTRIBUTION WIDTH 11.7 % (11.5-14.5)
[2019-01-13 05:31] LABS: WHITE BLOOD COUNT 14.9 10^3/ul (4.8-10.8)
[2019-01-13 05:32] LABS: ADD MAN DIFF? NO
[2019-01-13 06:07] LABS: PHOSPHORUS 3.2 mg/dl (2.5-4.9)
[2019-01-13 06:07] LABS: MAGNESIUM 2.1 mg/dl (1.7-2.5)
[2019-01-13 06:08] LABS: ANION GAP 9 (5-13); BLOOD UREA NITROGEN 10 mg/dl (7-20); CALCIUM 9.4 mg/dl (8.4-10.2); CARBON DIOXIDE 28 mmol/L (21-31); CHLORIDE 101 mmol/L (97-110); CREATININE 0.61 mg/dl (0.61-1.24); Estimated GFR > 60 mL/min (>60); GLUCOSE 157 mg/dl (70-220); POTASSIUM 4.5 mmol/L (3.5-5.1); SODIUM 138 mmol/L (135-144)
[2019-01-13] MEDS ORDERED: ETOMIDATE 20 MG INJ (07:00)
[2019-01-13] MEDS ORDERED: SUCCINYLCHOLINE CHLORIDE 100 MG/5 ML SYG IV (07:00)
[2019-01-13 08:12] LABS: PHENYTOIN (DILANTIN) 14.6 ug/ml (10.0-20.0)
[2019-01-13] MEDS: PHENOBARBITAL 65 MG INJ IV ×2 (09:40→21:14)
[2019-01-13 11:42] LABS: CHOL/HDL RATIO 1.9 RATIO; HDL CHOLESTEROL 43 mg/dl (28-63); LDL CHOLESTEROL,CALCULATED 34 mg/dl; TRIGLYCERIDES 24 mg/dl (0-149)
[2019-01-13 11:42] LABS: CHOLESTEROL 82 mg/dl (100-200)
[2019-01-13 11:54] LABS: TROPONIN-I 0.018 ng/ml (0.000-0.120)
[2019-01-13 12:57] LABS: ADD MAN DIFF? NO
[2019-01-13 12:59] LABS: BASOPHIL # 0.1 10^3/ul (0.0-0.1); BASOPHILS % 0.4 % (0.0-2.0); EOSINOPHILS % 0.1 % (0.0-7.0); HEMATOCRIT 39.3 % (42.0-52.0); LYMPHOCYTES % 6.4 % (15.0-51.0); MEAN CORPUSCULAR HEMOGLOBIN 27.7 pg (29.0-33.0); MEAN CORPUSCULAR HGB CONC 33.1 g/dl (32.0-37.0); MEAN CORPUSCULAR VOLUME 83.8 fl (82.0-101.0); MEAN PLATELET VOLUME 9.6 fl (7.4-10.4); MONOCYTE # 1.1 10^3/ul (0.3-0.9); MONOCYTES % 6.8 % (0.0-11.0); NEUTROPHIL # 13.5 10^3/ul (1.6-7.5); NEUTROPHILS % 85.5 % (39.0-77.0); PLATELET COUNT 248 10^3/UL (140-415); RED BLOOD COUNT 4.69 10^6/ul (4.70-6.10); RED CELL DISTRIBUTION WIDTH 11.8 % (11.5-14.5)
[2019-01-13 12:59] LABS: WHITE BLOOD COUNT 15.7 10^3/ul (4.8-10.8)
[2019-01-13] MEDS ORDERED: LIDOCAINE 1% (MPF) 5 ML VIAL SC (13:00)
[2019-01-13] MEDS ORDERED: PROPOFOL 100 ML (15:16)
[2019-01-13] MEDS ORDERED: MIDAZOLAM (DRIP) 50 mg/50 mL 50 ML IV (16:00)
[2019-01-13] MEDS: ASPIRIN 81 MG TAB PO (17:14)
[2019-01-13] MEDS: PROPOFOL 100 ML IV ×2 (17:14→21:37)
[2019-01-13] MEDS: CEFTRIAXONE 1 GM/50 ML (PMX) 50 ML IVPB (17:20)
[2019-01-13 17:44] LABS: AADO2 Arterial 117.9 mmHg (7.0-24.0); Allen Test ACCEPTAB; Arterial Base Excess 4.5 mmol/L (-3.0-3); Arterial Blood Gas Oxygen Sat 99.6 mmHG (95.0-98.0); Arterial COHb 0 % (0.0-3.0); Arterial Fraction of Oxyhgb 99.2 % (93.0-99.0); Arterial MetHb 0.4 % (0.0-1.5); Arterial pCO2 29.9 mmhg (35-45); MODE VENT - AC; Site Right Radial
[2019-01-13 22:27] LABS: AADO2 Arterial 42.7 mmHg (7.0-24.0); Allen Test ACCEPTAB; Arterial Base Excess 3.3 mmol/L (-3.0-3); Arterial Blood Gas Oxygen Sat 99.1 mmHG (95.0-98.0); Arterial COHb 0.3 % (0.0-3.0); Arterial Fraction of Oxyhgb 98.4 % (93.0-99.0); Arterial HCO3 28.3 mmol/L (22.0-26.0); Arterial MetHb 0.4 % (0.0-1.5); Arterial pCO2 44.3 mmhg (35-45); MODE VENT - AC; Site Right Radial
[2019-01-14] MEDS: PROPOFOL 100 ML IV (01:59)
== END 2019-01-14 02:15 | disposition short-term general hospital (02) | DRG 101 ==
LOC: 6WM 01-03 12:30 → E/R 04:27 → ICU 01-09 12:20
PROVIDERS: Family Medicine
PROC: 0BH17EZ Insertion of Endotracheal Airway into Trachea, Via Natural or Artificial Opening (ICD-10-PCS; principal; 2019-01-13)
PROC: 05HM33Z Insertion of Infusion Device into Right Internal Jugular Vein, Percutaneous Approach (ICD-10-PCS; 2019-01-13)
PROC: 5A1935Z Respiratory Ventilation, Less than 24 Consecutive Hours (ICD-10-PCS; 2019-01-13)
DX: G40.909 Epilepsy, unspecified, not intractable, without status epilepticus (principal); N39.0 Urinary tract infection, site not specified; Z86.011 Personal history of benign neoplasm of the brain; R53.83 Other fatigue
CPT/HCPCS: 31500; 36600; 70450; 70553; 71045; 80048; 80053; 80061; 80156; 80164; 80177; 80184; 80185; 80307; 81001; 81003; 82803; 82962; 83036; 83735; 84100; 84146; 84443; 84484; 85025; 85730; 87040-91; 87081; 87086; 92526; 92610; 93005; 94002; 94003; 94770; 95819; 96374; 96375; 97161; 99285-25